=== PATIENT | male | born 1980 | race Caucasian/White ===

== ENCOUNTER 2020-04-24 07:38 | Day surgery (SDC) | payer BC ==
[2020-04-21 13:42] VITALS: BMI 25.7
[2020-04-24 08:00] VITALS: TEMP 98
[2020-04-24] MEDS ORDERED: LIDOCAINE HCL/PF 2% SDV 5ML VIAL ONE (08:32)
[2020-04-24] MEDS ORDERED: PROPOFOL 20 ML ONE ×3 (08:33)
[2020-04-24 10:22] VITALS: BP 127/68; PULSE 71
== END 2020-04-24 10:00 | disposition home or self-care (01) ==
LOC: FASU 07:38
PROVIDERS: ATTEND Internal Medicine Gastroenterology
PROC: 0DBL8ZX Excision of Transverse Colon, Via Natural or Artificial Opening Endoscopic, Diagnostic (ICD-10-PCS; 2020-04-24)
PROC: 0DBP8ZX Excision of Rectum, Via Natural or Artificial Opening Endoscopic, Diagnostic (ICD-10-PCS; 2020-04-24)
PROC: 0DBM8ZX Excision of Descending Colon, Via Natural or Artificial Opening Endoscopic, Diagnostic (ICD-10-PCS; 2020-04-24)
PROC: 0DBK8ZX Excision of Ascending Colon, Via Natural or Artificial Opening Endoscopic, Diagnostic (ICD-10-PCS; principal; 2020-04-24 08:56)
DX: K62.5 Hemorrhage of anus and rectum (principal); K63.89 Other specified diseases of intestine; K64.2 Third degree hemorrhoids
CPT/HCPCS: 88305-TC